=== PATIENT | female | born 1995 | race Caucasian/White ===

== ENCOUNTER 2017-11-06 20:25 | Emergency (ER) | payer OTHER ==
[2017-11-06 20:34] VITALS: BP 123/57
--- NOTE | 2017-11-06 20:48 | EDPHY ---
H & P Stated Complaint: pt was cleaning a basement on Fri and now has a bite on right foot Source: Patient Exam Limitations: No limitations - Personal History LMP (Females 10-55): 1-7 Days Ago Current Tetanus/Diphtheria Vaccine: Unsure Current Tetanus Diphtheria and Acellular Pertussis (TDAP): Unsure - Medical/Surgical History Hx Asthma: No Hx Chronic Respiratory Disease: No Hx Diabetes: No Hx Cardiac Disease: No Hx Renal Disease: No Hx Cirrhosis: No Hx Alcoholism: No Hx HIV/AIDS: No Hx Splenectomy or Spleen Trauma: No Other PMH: denies - Social History Smoking Status: Never smoked Time Seen by Provider: 11/06/17 20:47 HPI/ROS: HPI: This is a 22-year-old female who presents with Chief Complaint: pt was cleaning a basement on Fri and now has a bite on right foot Location: Right foot Quality: Bug bite Duration: 4 days Signs and Symptoms: No bleeding, no radiation, no numbness, no weakness, no tingling, no incontinence, no decreased range of motion, no swelling, no pain, no fever Timing: Gradual onset Severity: Moderate Context: 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 She believes that she may have been bit by some type of insect. Was wearing shoes at the time. She reports that the next day she noticed a small bump that was extremely itchy. She tried taking Benadryl 25 mg without relief. LMP 1-7 days ago. No primary care provider. Modifying Factors: Benadryl, no relief Comment: ROS: see HPI Constitutional: No fever, no chills, no weight loss Eyes: No blurred vision Respiratory: No shortness of breath, no cough Cardiovascular: No chest pain Gastrointestinal: No nausea, no vomiting no diarrhea Genitourinary: No dysuria Extremities: No myalgias Neurologic: No weakness, no numbness Skin: No rashes Hematologic: No bruising, no bleeding MEDICAL/SURGICAL/SOCIAL HISTORY: Medical history: Generally healthy. Does not take any regular medications. Surgical history: Denies Social history: Nonsmoker. Local [employer] student. CONSTITUTIONAL: awake and alert, no obvious distress HEENT: Atraumatic and normocephalic. NECK: supple, no midline tenderness, flexion 45 degrees, extension 45 degrees, right and left lateral flexion 45 degrees. No meningismus. Cardiovascular: Normal S1/S2, regular rate, regular rhythm, without murmur rub or gallop. PULMONARY/CHEST: Symmetrical and nontender. no crepitus. Clear to auscultation bilaterally. Good air movement. No accessory muscle usage. ABDOMEN: Soft, nondistended, nontender, no ecchymosis. PELVIC: no pain with rocking; bilateral hips flexion 125 degrees, extension 30 degrees, with no pain internal rotation and no pain external rotation. BACK: No midline tenderness, no paraspinous spasm, deep tendon reflexes 2/2, no pain with straight leg raise, No foot drop. Achilles reflexes are equal bilaterally. Able to walk on heels and toes without difficulty. EXTREMITIES: 2/2 pulses, strength 5/5, DIP/PIP/MCP flexion/extension intact with good light touch sensation. no deformities, no clubbing, no cyanosis or edema. NEUROLOGICAL: no focal neuro deficits. GCS 15. Light touch sensation intact. SKIN: Warm and dry, mild erythema and pinpoint raised annular skin color lesion consistent with an insect bite right foot lateral arch; no surrounding fluctuance/petechiae/vesicles. no erythema. no rash. Good capillary refill. (Elyssa Baum) Constitutional: Initial Vital Signs Temperature (C) 36.7 C 11/06/17 20:30 Heart Rate 94 11/06/17 20:30 Respiratory Rate 16 11/06/17 20:30 Blood Pressure 123/57 H 11/06/17 20:30 O2 Sat (%) 95 11/06/17 20:30 Allergies/Adverse Reactions: Penicillins Allergy (Verified 11/06/17 20:34) Home Medications: Medication Instructions Recorded hydrOXYzine HCL [Hydroxyzine HCl] 50 mg PO Q6 PRN #12 tablet 11/06/17 Medical Decision Making ED Course/Re-evaluation: Given hydroxyzine and Decadron 8 mg No signs of neurovascular compromise/tenting of skin/compartment syndrome/ extremities and joints examined above and below area of concern and are neurovascularly intact/cellulitis/abscess. Advised supportive care Work note provided per request. This patient was seen under the supervision of my secondary supervising physician. I evaluated care for this patient independently. Discussed this patient with Dr. Ceja who did not see the patient. (Elyssa Baum) I did not see this patient while she was in the emergency department. However her care was discussed with the PA while the patient was in the department. I agree with treatment plannagem (Isreal Ceja) Differential Diagnosis: Differential diagnosis includes but is not limited to allergic dermatitis, contact dermatitis, insect bite cellulitis. (Elyssa Baum) - Data Points Medications Given: Discontinued Medications Dexamethasone (Decadron) 8 mg PO EDNOW ONE Stop: 11/06/17 20:52 Last Admin: 11/06/17 20:57 Dose: 8 mg Hydroxyzine HCl (Hydroxyzine Hcl) 50 mg PO ONCE ONE Stop: 11/06/17 20:52 Last Admin: 11/06/17 21:19 Dose: 50 mg Departure - Departure Disposition: Home, Routine, Self-Care Clinical Impression: Irritant dermatitis Condition: Good Instructions: Contact Dermatitis (ED) Additional Instructions: Please avoid hot baths and wearing shoes with socks until fully healed. Take hydroxyzine 50 mg every 6 hr as needed for itchiness/allergic reaction. Apply topical [id number] calamine lotion/Benadryl cream 3 times a day as needed. Referrals: [facility],. [Clinic] - As per Instructions Stand Alone Forms: Work Excuse Prescriptions: hydrOXYzine HCL [Hydroxyzine HCl] 50 mg PO Q6 PRN #12 tablet PRN Reason: Itching
[2017-11-06] MEDS ORDERED: hydrOXYzine HCL 50 MG TAB PO ONE (20:51)
[2017-11-06] MEDS ORDERED: DEXAMETHASONE 4 MG TAB PO ONE (20:51)
== END 2017-11-06 21:23 | disposition home or self-care (01) ==
DX: L24.9 Irritant contact dermatitis, unspecified cause (principal); W57.XXXA Bitten or stung by nonvenomous insect and other nonvenomous arthropods, initial encounter; Y92.009 Unspecified place in unspecified non-institutional (private) residence as the place of occurrence of the external cause; Y99.8 Other external cause status; Y93.E5 Activity, floor mopping and cleaning

== ENCOUNTER 2017-12-13 18:48 | Emergency (ER) | payer MEDICAID ==
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
[2017-12-13] MEDS ORDERED: IBUPROFEN 600 MG TAB PO ONE (18:55)
[2017-12-13 19:16] VITALS: BP 137/74
== END 2017-12-13 19:38 | disposition home or self-care (01) ==
LOC: EDUNIT#
DX: S30.0XXA Contusion of lower back and pelvis, initial encounter (principal); F17.200 Nicotine dependence, unspecified, uncomplicated; V48.4XXA Person boarding or alighting a car injured in noncollision transport accident, initial encounter; Y92.410 Unspecified street and highway as the place of occurrence of the external cause

== ENCOUNTER 2018-02-16 22:48 | Emergency (ER) | payer MEDICAID ==
[2018-02-16] MEDS ORDERED: DEXAMETHASONE 4 MG TAB PO ONE (23:06)
[2018-02-16] MEDS ORDERED: ACETAMINOPHEN 500 MG TAB PO ONE (23:06)
[2018-02-16] MEDS ORDERED: IBUPROFEN 800 MG TAB PO ONE (23:06)
[2018-02-16] MEDS ORDERED: AZITHROMYCIN 250 MG TAB PO ONE (23:32)
--- NOTE | 2018-02-16 23:32 | EDPHY ---
H & P Stated Complaint: sore throat, fever Time Seen by Provider: 02/16/18 23:00 HPI/ROS: Chief complaint: Fever, chills, sore throat History of present illness: This is a 22-year-old female who presents to the emergency department for fever and chills and sore throat. Symptoms begun over the last day. They have progressively worsened. She reports associated malaise. She denies cough, chest congestion, trouble breathing, rash, neck pain or headache. She took DayQuil this morning which helped a little. She has not taken any other medications. - Personal History LMP (Females 10-55): Unknown Current Tetanus Diphtheria and Acellular Pertussis (TDAP): Yes - Medical/Surgical History Hx Asthma: No Hx Chronic Respiratory Disease: No Hx Diabetes: No Hx Cardiac Disease: No Hx Renal Disease: No Hx Cirrhosis: No Hx Alcoholism: No Hx HIV/AIDS: No Hx Splenectomy or Spleen Trauma: No Other PMH: denies - Social History Smoking Status: Former smoker - Physical Exam Exam: General Appearance: Alert, nontoxic. Eyes: Pupils equal and round no pallor or injection. ENT, Mouth: Tympanic membranes, external auditory canals, external ears and surrounding soft tissue including over the mastoids are unremarkable. Nasopharynx is not injected. There is no rhinorrhea. Oropharynx is injected. Tonsils are edematous with pustular discharge. There is no asymmetry. The uvula is midline. No elevation of the tongue. There is no hoarseness, no drooling, no trismus, no stridor. Respiratory: There are no retractions, lungs are clear to auscultation. Cardiovascular: Regular rate and rhythm. Neurological: Alert and oriented x4. Strength and sensation intact and symmetrical. No meningismus. Skin: Warm and dry, no rashes. Musculoskeletal: Neck is supple non tender. Extremities are symmetrical, full range of motion. Psychiatric: Patient is oriented X 3, there is no agitation. Constitutional: Initial Vital Signs Temperature (C) 37.6 C 02/16/18 22:50 Heart Rate 130 H 02/16/18 22:50 Respiratory Rate 20 02/16/18 22:50 Blood Pressure 128/61 H 02/16/18 22:50 O2 Sat (%) 95 02/16/18 22:50 O2 Delivery Mode Room Air Allergies/Adverse Reactions: Penicillins Allergy (Verified 02/16/18 22:50) Home Medications: Medication Instructions Recorded Azithromycin 250 mg PO DAILY 4 Days tablet 02/16/18 Medical Decision Making ED Course/Re-evaluation: Patient seen under the supervision of my secondary supervising physician Dr. Cody Glover. Patient presents for fever and chills and sore throat. She appears to have a tonsillitis. Strep swab is negative. She is nontoxic. She is symptomatically treated with Tylenol, ibuprofen and Decadron. She is feeling better. Tolerating oral challenges without difficulty. She has a severe penicillin allergy, therefore I will treat her with azithromycin. Home care is discussed. She is to follow up with a primary care doctor on Sunday for recheck. Strict return precautions were given. The patient voiced understanding and agreement with plan. Differential Diagnosis: Included but not limited to pharyngitis, strep pharyngitis, tonsillitis, abscess formation, unlikely meningitis or lower respiratory tract infection - Data Points Laboratory Results: 02/16/18 02/16/18 Unknown 23:05 Group A Strep Screen NEGATIVE (NEGATIVE) Group A Strep DNA Pending Medications Given: Discontinued Medications Acetaminophen (Tylenol) 1,000 mg PO EDNOW ONE Stop: 02/16/18 23:07 Last Admin: 02/16/18 23:11 Dose: 1,000 mg Azithromycin (Zithromax) 500 mg PO EDNOW ONE PRN Reason: Protocol Stop: 02/16/18 23:33 Last Admin: 02/16/18 23:44 Dose: 500 mg Dexamethasone (Decadron) 10 mg PO EDNOW ONE Stop: 02/16/18 23:07 Last Admin: 02/16/18 23:12 Dose: 10 mg Ibuprofen (Motrin) 800 mg PO EDNOW ONE Stop: 02/16/18 23:07 Last Admin: 02/16/18 23:10 Dose: 800 mg Departure - Departure Disposition: Home, Routine, Self-Care Clinical Impression: Acute bacterial tonsillitis Condition: Good Instructions: Azithromycin (By mouth), Tonsillitis (ED) Additional Instructions: Follow-up with a primary care doctor next week for recheck Use ibuprofen 600 mg 3 times a day for the next 2-3 days for pain control Take antibiotics as prescribed until finished If symptoms worsen or new symptoms develop return to the emergency room for recheck Referrals: NONE *PRIMARY CARE P,. [Primary Care Provider] - As per Instructions [facility],. [Clinic] - As per Instructions Prescriptions: Azithromycin 250 mg PO DAILY 4 Days tablet
[2018-02-16 23:43] VITALS: BP 112/53
== END 2018-02-16 23:50 | disposition home or self-care (01) ==
DX: J03.80 Acute tonsillitis due to other specified organisms (principal); B96.89 Other specified bacterial agents as the cause of diseases classified elsewhere